=== PATIENT | male | born 2000 | race Hispanic/Latino ===

== ENCOUNTER 2019-01-15 21:50 | Emergency (ER) | payer OTHER, SELFPAY ==
--- OUTSIDE RECORDS SUMMARY | 2019-01-15 21:53 | XMS REPORT ---
:2000 [facility] [address] [place] [address] Care Team Providers Name Role Phone Unavailable Unavailable Unavailable Problems This patient has no known problems. Allergies, Adverse Reactions, Alerts This patient has no known allergies or adverse reactions. Medications This patient has no known medications.
[2019-01-15 22:38] LABS: Basophils % 0.7 % (0-1.3); Hematocrit 42.4 % (39.6-49.0); Lymphocytes % 20.2 % (15.3-44.8); MPV 8.4 fL (7.6-11.3); RBC Red Blood Cell Count 5.31 M/uL (4.33-5.43)
[2019-01-15 22:43] LABS: Protime INR 1.11
[2019-01-15 23:01] LABS: ALT/SGPT 45 U/L (12-78); AST/SGOT 26 U/L (15-37); Albumin 4.2 g/dL (3.4-5.0); Alkaline Phosphatase 169 U/L (45-117); BUN Blood Urea Nitrogen 17 mg/dL (7-18); Bicarbonate 28 mmol/L (21-32); Bilirubin Direct 0.1 mg/dL (0-0.2); Bilirubin Total 0.3 mg/dL (0.2-1.0); Glucose Level 116 mg/dL (74-106); Potassium 3.3 mmol/L (3.5-5.1); Protein, Total 7.7 g/dL (6.4-8.2); Sodium Level 140 mmol/L (136-145)
[2019-01-15] MEDS ORDERED: POTASSIUM CL SA 10 MEQ TAB PO ONE (23:41)
[2019-01-16 01:15] LABS: Barbiturates NEGATIVE (NEGATIVE); Benzodiazepines NEGATIVE (NEGATIVE); Cocaine NEGATIVE (NEGATIVE); METHAMPHETAM NEGATIVE (NEGATIVE); Methadone NEGATIVE (NEGATIVE); Opiates NEGATIVE (NEGATIVE); Phencyclidine NEGATIVE (NEGATIVE); THC Cannibis NEGATIVE (NEGATIVE)
[2019-01-16 02:00] LABS: Urine Blood NEGATIVE (NEG); Urine Glucose TRACE (NEG); Urine Protein NEGATIVE (NEG); Urine Specific Gravity >1.030 (1.005-1.030); Urine pH 6.5 (5.0-7.0)
[2019-01-16] MEDS ORDERED: DIAZEPAM 5 MG TABLET ONE (09:26)
--- NOTE | 2019-01-16 10:05 | EKG ---
Test Date: 2019-01-15 Test Time: 23:02:23 Clothespin Drier Operator: EMMA MEASUREMENT RESULTS: Intervals: Rate: 92 MS: 136 QRSD: 82 QT: 338 QTc: 417 [place]: P: 62 MS: 136 QRS: 78 T: 3 INTERPRETIVE STATEMENTS: Normal sinus rhythm Normal ECG No previous ECG available for comparison Electronically Signed On 01-16-19 10:03:34 FLAT SORTER PROCESSOR by Tip Huffman
--- NOTE | 2019-01-16 11:06 | EDPHYS ---
Physician Documentation [facility] Name: Rigoberto Solis Age: 18 yrs Sex: Male : 2000 Arrival Date: 01/15/2019 Time: 21:51 Bed 15 Private MD: ED Physician Corey Yan HPI: 01/15 22:55 This 18 yrs old Male presents to ER via Ambulatory with complaints of Altered kdr Mental Status. 22:55 The patient presents with confusion, decreased mental status, disorientation. Onset: kdr The symptoms/episode began/occurred gradually, 3 day(s) ago. Possible causes: Acute psychosis. Associated signs and symptoms: The patient has no apparent associated signs or symptoms. Current symptoms: In the emergency department the patient's symptoms are unchanged from the initial presentation. Patient's baseline: Neuro: alert and fully oriented, Motor: no deficits, Ambulation: walks without assistance, Speech: normal for age, The patient has a previous history of Depression. The patient has not experienced similar symptoms in the past. The patient has not recently seen a physician, Gets his meds from [facility]. Historical: - Allergies: 22:18 No Known Allergies; bb - Home Meds: 22:18 sertraline oral oral [Active]; bb - PMHx: 22:18 Anxiety; Depression; bb - PSHx: 22:18 None; bb - Immunization history:: Adult Immunizations up to date. - Social history:: Smoking status: Patient/guardian denies using tobacco, Patient/guardian denies using alcohol, street drugs. - Ebola Screening: : No symptoms or risks identified at this time. ROS: 22:55 Constitutional: Negative for fever, chills, and weight loss, Eyes: Negative for injury, kdr pain, redness, and discharge, ENT: Negative for injury, pain, and discharge, Neck: Negative for injury, pain, and swelling, Cardiovascular: Negative for chest pain, palpitations, and edema, Respiratory: Negative for shortness of breath, cough, wheezing, and pleuritic chest pain, Abdomen/GI: Negative for abdominal pain, nausea, vomiting, diarrhea, and constipation, Back: Negative for injury and pain, : Negative for injury, bleeding, discharge, and swelling, MS/Extremity: Negative for injury and deformity, Skin: Negative for injury, rash, and discoloration, Neuro: Negative for headache, weakness, numbness, tingling, and seizure activity. Allergy/Immunology: Negative for hives, rash, and allergies, Endocrine: Negative for neck swelling, polydipsia, polyuria, polyphagia, and marked weight changes, Hematologic/Lymphatic: Negative for swollen nodes, abnormal bleeding, and unusual bruising. 22:55 Psych: Positive for depression, visual hallucinations, Hallucinations are not recent or with this episode. Exam: 22:55 Constitutional: This is a well developed, well nourished patient who is awake, alert, kdr and in no acute distress. Head/Face: Normocephalic, atraumatic. Eyes: Pupils equal round and reactive to light, extra-ocular motions intact. Lids and lashes normal. Conjunctiva and sclera are non-icteric and not injected. Cornea within normal limits. Periorbital areas with no swelling, redness, or edema. Neck: Trachea midline, no thyromegaly or masses palpated, and no cervical lymphadenopathy. Supple, full range of motion without nuchal rigidity, or vertebral point tenderness. No Meningismus. Chest/axilla: Normal chest wall appearance and motion. Nontender with no deformity. No lesions are appreciated. Cardiovascular: Regular rate and rhythm with a normal S1 and S2. No gallops, murmurs, or rubs. Normal PMI, no JVD. No pulse deficits. Respiratory: Lungs have equal breath sounds bilaterally, clear to auscultation and percussion. No rales, rhonchi or wheezes noted. No increased work of breathing, no retractions or nasal flaring. Abdomen/GI: Soft, non-tender, with normal bowel sounds. No distension or tympany. No guarding or rebound. No evidence of tenderness throughout. Back: No spinal tenderness. No costovertebral tenderness. Full range of motion. Skin: Warm, dry with normal turgor. Normal color with no rashes, no lesions, and no evidence of cellulitis. MS/ Extremity: Pulses equal, no cyanosis. Neurovascular intact. Full, normal range of motion. Neuro: Awake and alert, GCS 15, oriented to person, place, time, and situation. Cranial nerves II-XII grossly intact. Motor strength 5/5 in all extremities. Sensory grossly intact. Cerebellar exam normal. Normal gait. 22:55 Psych: Behavior/mood is cooperative, depressed, inappropriate for age, Affect is flat, Unable to assess due to AMS - confusion. Patient has no thoughts/intents to harm self or others. Judgement / Insight is impaired. The patient is unable to cooperate with this portion of the exam. His affect is flat, he follow commands but appears disconnect from what is happening around him and is unable to answer questions such as where he lives, where he is at, his birthday. At this time he does not appear to be having any hallucinations though family reports that he has had them in the past. The patient had been on Risperidone but kept him on his sertraline.. Delusions/hallucinations are not present. Vital Signs: 22:18 BP 163 / 104; Pulse 106; Resp 14 S; Temp 98.4(O); Pulse Ox 100% on R/A; Weight 86.18 kg bb (R); Height 5 ft. 6 in. (167.64 cm) (R); Pain 0/10; 23:07 BP 136 / 86; Pulse 90; Resp 18; Pulse Ox 99% on R/A; lp1 12 02:15 BP 121 / 71; Pulse 90; Resp 18; Temp 98.2(O); Pulse Ox 99% on R/A; Pain 0/10; lp1 06:39 BP 133 / 87; Pulse 90; Resp 16; Temp 97.8; Pulse Ox 100% ; Pain 0/10; ds4 01/15 22:18 Body Mass Index 30.67 (86.18 kg, 167.64 cm) bb MDM: 08:05 Patient medically screened. rn 08:09 ED course: Pt awake, calm, mother reports is wandering off, has only had a few hours of rn sleep this whole week, not taking risperidone because they feel not helping, and was found walking in ditch confused. . 11:05 Data reviewed: vital signs, nurses notes, lab test result(s), radiologic studies. kdr Counseling: I had a detailed discussion with the patient and/or guardian regarding: the historical points, exam findings, and any diagnostic results supporting the discharge/admit diagnosis, lab results, radiology results, the need to transfer to another facility. ED course: The patient continues to be stable in the ED. He was medicated with Valium at 9:15 AM but has been otherwise without need for further immediate intervention prior to psychiatry evaluation. 01/15 22:25 Order name: Acetaminophen; Complete Time: 23:03 kdr 01/15 22:25 Order name: Basic Metabolic Panel; Complete Time: 23:03 [facility] 01/15 22:25 Order name: CBC with Diff; Complete Time: 23:03 [facility] 01/15 22:25 Order name: ETOH Level; Complete Time: 23:03 kdr 01/15 22:25 Order name: Hepatic Function; Complete Time: 23:03 [facility] 01/15 22:25 Order name: PT-INR; Complete Time: 23:03 kdr 01/15 22:25 Order name: Ptt, Activated; Complete Time: 23:03 kdr 01/15 22:25 Order name: Salicylate; Complete Time: 23:03 kdr 01/15 22:25 Order name: Urine Drug Screen; Complete Time: 08:04 kdr 01/15 22:25 Order name: EKG; Complete Time: 22:26 [facility] 01/16 01:03 Order name: Urine Dipstick--Ancillary (enter results); Complete Time: 08:04 [place] 01/16 11:03 Order name: CT Head Brain wo Cont [facility] 01/15 22:25 Order name: EKG - Nurse/Tech; Complete Time: 23:08 [facility] 01/15 22:25 Order name: IV Saline Lock; Complete Time: 22:41 [facility] 01/15 22:25 Order name: Labs collected and sent; Complete Time: 22:41 [facility] 01/15 22:25 Order name: Urine Dipstick-Ancillary (obtain specimen); Complete Time: 00:57 kdr 01/16 08:58 Order name: Diet Regular; Complete Time: 08:59 tw2 01/16 08:58 Order name: Diet Regular; Complete Time: 08:59 tw2 Administered Medications: 00:30 Drug: Potassium Chloride 40 mEq Route: PO; lp1 01:03 Follow up: Response: No adverse reaction lp1 09:28 Drug: Valium 5 mg Route: PO; tw2 10:35 Follow up: Response: No adverse reaction tw2 Disposition: 01/16/19 11:05 Transfer ordered to [facility]. Diagnosis is Depression, Acute psychosis. - Reason for transfer: Higher level of care. - Accepting physician is DR. Velásquez and Dr. Alarcon; [facility]. - Condition is Fair. - Problem is an acute exacerbation. - Symptoms are unchanged. Signatures: Dispatcher [employer] Corey Wright MD MD kdr Ballard, Brenda RN RN bb Ernesto Mcguire MD MD rn Pena, Laura, RN RN lp1 Lina Carreon RN RN tw2 Corrections: (The following items were deleted from the chart) 11:56 11:05 01/16/2019 11:05 Transfer ordered to Psych Facility. Diagnosis is Depression, tw2 Acute psychosis. Reason for transfer: Higher level of care. Accepting physician is DR. Velásquez and Dr. Alarcon; [facility]. Condition is Fair. Problem is an acute exacerbation. Symptoms are unchanged. kdr
--- NOTE | 2019-01-16 11:06 | ER ---
Nurse's Notes [facility] Name: Rigoberto Solis Age: 18 yrs Sex: Male : 2000 Arrival Date: 01/15/2019 Time: 21:51 Bed 15 Private MD: Diagnosis: Depression, Acute psychosis Presentation: 01/15 22:15 Presenting complaint: Mother states: pt has hx of anxiety and depression currently is bb taking sertraline and was on respiradone but she stopped it because it made him worse, over the last week pt has not been sleeping at all and will get up during the middle of the night to go walking around outside. Transition of care: patient was not received from another setting of care. Onset of symptoms was January 08, 2019. Risk Assessment: Do you want to hurt yourself or someone else? Patient reports no desire to harm self or others. Initial Sepsis Screen: Does the patient meet any 2 criteria? No. Patient's initial sepsis screen is negative. Does the patient have a suspected source of infection? No. Patient's initial sepsis screen is negative. Care prior to arrival: None. 22:15 Method Of Arrival: Ambulatory bb 22:15 Acuity: GLYNN 2 bb Historical: - Allergies: 22:18 No Known Allergies; bb - Home Meds: 22:18 sertraline oral oral [Active]; bb - PMHx: 22:18 Anxiety; Depression; bb - PSHx: 22:18 None; bb - Immunization history:: Adult Immunizations up to date. - Social history:: Smoking status: Patient/guardian denies using tobacco, Patient/guardian denies using alcohol, street drugs. - Ebola Screening: : No symptoms or risks identified at this time. Screenin:46 Abuse screen: Denies threats or abuse. Denies injuries from another. Nutritional lp1 screening: No deficits noted. Tuberculosis screening: No symptoms or risk factors identified. Fall Risk None identified. Assessment: 22:43 General: Appears in no apparent distress. Behavior is flat. Pain: Denies pain. Neuro: lp1 Level of Consciousness is awake, confused, Oriented to person, Gait is steady. Cardiovascular: Patient's skin is warm and dry. Respiratory: Respiratory effort is even, unlabored. GI: No deficits noted. : No signs and/or symptoms were reported regarding the genitourinary system. EENT: No signs and/or symptoms were reported regarding the EENT system. Derm: Skin is pink, warm \T\ dry. abrasions noted to upper left arm, superficial. Musculoskeletal: Range of motion: intact in all extremities. 23:45 Reassessment: Patient appears in no apparent distress at this time. Patient resting, lp1 calm in bed, mother at bedside. 01/16 00:45 Reassessment: Patient appears in no apparent distress at this time. [facility] 02:16 Reassessment: Patient appears in no apparent distress at this time. Patient resting, lp1 eyes closed, respirations unlabored; mother at bedside; Aware of pending approval to psych facility. 04:15 Reassessment: Patient appears in no apparent distress at this time. Patient ambulating lp1 to bathroom at this time; Continues to be slow to respond to questions, steady gait noted. 06:39 Reassessment: Patient ambulating to bathroom independently; calm, cooperative; Mother lp1 at bedside, aware of pending approval for transfer to facility for continued care. 06:45 Reassessment: Patient given sandwich and juice. lp1 08:00 Reassessment: Patient appears in no apparent distress at this time. Patient and/or tw2 family updated on plan of care and expected duration. Pain level reassessed. pts mother remains at bedside at this time. 08:57 Reassessment: Patient appears in no apparent distress at this time. Patient and/or tw2 family updated on plan of care and expected duration. Pain level reassessed. pt appears to be sleeping at this time. 09:30 Reassessment: Patient appears in no apparent distress at this time. pt given breakfast tw2 tray at this time. mother still remains at bedside at this time. 10:00 Reassessment: Patient appears in no apparent distress at this time. Patient and/or tw2 family updated on plan of care and expected duration. Pain level reassessed. pt appears to be sleeping at this time. 10:31 Reassessment: [facility] called for nurse to nurse. 10:59 Reassessment: Patient appears in no apparent distress at this time. Patient and/or tw2 family updated on plan of care and expected duration. Pain level reassessed. 11:56 Reassessment: Patient appears in no apparent distress at this time. Patient and/or tw2 family updated on plan of care and expected duration. Pain level reassessed. Vital Signs: 01/15 22:18 BP 163 / 104; Pulse 106; Resp 14 S; Temp 98.4(O); Pulse Ox 100% on R/A; Weight 86.18 kg bb (R); Height 5 ft. 6 in. (167.64 cm) (R); Pain 0/10; 23:07 BP 136 / 86; Pulse 90; Resp 18; Pulse Ox 99% on R/A; lp1 01/16 02:15 BP 121 / 71; Pulse 90; Resp 18; Temp 98.2(O); Pulse Ox 99% on R/A; Pain 0/10; lp1 06:39 BP 133 / 87; Pulse 90; Resp 16; Temp 97.8; Pulse Ox 100% ; Pain 0/10; ds4 01/15 22:18 Body Mass Index 30.67 (86.18 kg, 167.64 cm) bb ED Course: 01/15 21:51 Patient arrived in ED. ds1 21:55 Corey Yan MD is Attending Physician. kdr 22:18 Triage completed. bb 22:18 Arm band placed on Patient placed in an exam room, on a stretcher, on pulse oximetry. bb Family accompanied patient. 22:25 Inserted saline lock: 20 gauge in right antecubital area, using aseptic technique. lp1 Blood collected. 22:38 Kim Whitt, RN is Primary Nurse. lp1 22:46 Patient has correct armband on for positive identification. Placed in gown. lp1 01/16 02:17 No provider procedures requiring assistance completed. lp1 07:07 Primary Nurse role handed off by Kim Whitt, RN tw2 07:07 Lina Carreon, RN is Primary Nurse. tw2 08:05 Attending Physician role handed off by Corey Yan MD rn 08:05 Ernesto Mcguire MD is Attending Physician. rn 09:29 faxed chart and exclusionary to [facility]. bd 10:09 Attending Physician role handed off by Ernesto Mcguire MD rn 10:09 Corey Yan MD is Attending Physician. rn 11:22 CT Head Brain wo Cont In Process Unspecified. EDMS 11:54 IV discontinued, intact, bleeding controlled, No redness/swelling at site. Pressure tw2 dressing applied. Administered Medications: 00:30 Drug: Potassium Chloride 40 mEq Route: PO; lp1 01:03 Follow up: Response: No adverse reaction lp1 09:28 Drug: Valium 5 mg Route: PO; tw2 10:35 Follow up: Response: No adverse reaction tw2 Outcome: 11:05 ER care complete, transfer ordered by MD. [facility] 11:53 Transferred by ground EMS Note: [facility] tw2 11:53 Condition: stable 11:53 Instructed on the need for transfer. 11:56 Patient left the ED. tw2 Signatures: Dispatcher [employer] EDMS Misa Caballero Kevin, MD MD kdr Sanford, Demi ds1 Lesia Mukherjee RN RN Lana Harris RN RN iw Ernesto Mcguire MD MD rn Pena, Laura, RN RN lp1 Aleks Nguyen ds4 Lina Carreon RN RN tw2
--- NOTE | 2019-01-16 11:52 | RAD REPORT ---
EXAM DESCRIPTION: CT - Head Brain Wo Cont - 01/16/2019 11:21 am CLINICAL HISTORY: CONFUSED Headache, drowsiness COMPARISON: No comparisons TECHNIQUE: All CT scans are performed using dose optimization technique as appropriate and may inclu de automated exposure control or mA/KV adjustment according to patient size. FINDINGS: No intracranial hemorrhage, hydrocephalus or extra-axial fluid collection.No areas of brai n edema or evidence of midline shift. There is a large mass in the skullbase region in the approximate expected location of the sphenoid si nus. The mass demonstrates calcified as well as soft tissue components. The overall lesion measures 3 .4 x 4.3 x 2.8 cm. The calvarium is intact. IMPRESSION: Large mass type lesion seen in the region of the sphenoid sinus demonstrating areas of s urrounding bony sclerosis as well as expansion, soft tissue and calcific densities. This is a nonspec ific finding but may represent a mucocele. No intracranial bleed seen.
[2019-01-16 12:07] VITALS: BP 133/87; TEMP 97.8; O2SAT 100
== END 2019-01-16 11:56 ==
LOC: ER 21:50
DX: F32.9 Major depressive disorder, single episode, unspecified (principal); F23 Brief psychotic disorder; F41.9 Anxiety disorder, unspecified
CPT/HCPCS: 36415; 70450; 80048; 80076; 80307; 80320; 80329; 81003; 85025; 85610; 85730; 93005; 99285

== ENCOUNTER 2024-12-13 10:54 | Emergency (ER) | payer MEDICAID, OTHER ==
[2024-12-13 11:50] LABS: Absolute Lymphocytes (CBC) 2.6 K/uL (0.7-4.9); Hematocrit 44.7 % (39.6-49.0); Hemoglobin 14.4 g/dL (13.6-17.9); MCH 24.7 pg (27.0-35.0); MCHC 32.2 g/dL (32.0-36.0); MCV 76.8 fL (80-100); MPV 8.5 fL (7.6-11.3); Nucleated RBC Absolute Count 0.0 (0-0); Nucleated Red Blood Cells % 0.2 % (0-0); RBC Red Blood Cell Count 5.82 M/uL (4.33-5.43); White Blood Count 10.70 thou/uL (4.3-10.9)
[2024-12-13 11:59] LABS: PT Prothrombin Time 12.7 SECONDS (10-13.0); PTT, Activated Partial Thromb 33.6 SECONDS (27.2-37.4); Protime INR 1.13
[2024-12-13 12:03] LABS: METHAMPHETAM NEGATIVE (NEGATIVE); THC Cannibis NEGATIVE (NEGATIVE)
[2024-12-13 12:14] LABS: ALT/SGPT 38 U/L (16-61); AST/SGOT 24 U/L (15-37); Albumin 3.6 g/dL (3.4-5.0); Albumin/Globulin Ratio 0.9 (1.1-1.8); Alkaline Phosphatase 161 U/L (45-117); Anion Gap 9.7 mEq/L (5.0-15.0); BUN Blood Urea Nitrogen 13 mg/dL (7-18); Bilirubin Indirect, Calculated 0.6 mg/dL (0.2-0.8); Globulin 3.8 g/dL (2.3-3.5); Glucose Level 86 mg/dL (74-106); Potassium 3.7 mEq/L (3.5-5.1)
--- NOTE | 2024-12-13 12:43 | EDPHYS ---
Physician Documentation [facility] Name: Rigoberto Solis Age: 24 yrs Sex: Male : 2000 Arrival Date: 12/13/2024 Time: 10:54 Bed 18 Private MD: ED Physician Silas Crystal HPI: 12/13 11:37 This 24 yrs old Male presents to ER via EMS with complaints of Psych Problem. dr5 11:37 The patient presents to the emergency department with suicide ideation, and the patient dr5 has a plan, Wants to kill himself by putting knife to his neck. Onset: The symptoms/episode began/occurred acutely. Patient is a 24-year-old male with history of anxiety, depression, and previous suicidal ideation coming in with suicidal ideation with plan to put a knife to his neck and sliced his neck.. Historical: - Allergies: 10:57 No Known Allergies; bp - PMHx: :57 Anxiety; Depression; bp - Immunization history:: Adult Immunizations unknown. - Infectious Disease History:: Denies. - Social history:: Smoking status: Patient denies any tobacco usage or history of. ROS: 11:37 Constitutional: as per hpi dr5 Exam: 11:37 Constitutional: This is a well developed, well nourished patient who is awake, alert, dr5 and in no acute distress. Head/Face: Normocephalic, atraumatic. Eyes: Pupils equal round and reactive to light, extra-ocular motions intact. Lids and lashes normal. Conjunctiva and sclera are non-icteric and not injected. Cornea within normal limits. Periorbital areas with no swelling, redness, or edema. Neck: Trachea midline, no thyromegaly or masses palpated, and no cervical lymphadenopathy. Supple, full range of motion without nuchal rigidity, or vertebral point tenderness. No Meningismus. Chest/axilla: Normal chest wall appearance and motion. Nontender with no deformity. No lesions are appreciated. Cardiovascular: Regular rate and rhythm with a normal S1 and S2. Normal PMI, no JVD. No pulse deficits. Respiratory: Lungs have equal breath sounds bilaterally, clear to auscultation. No rales, rhonchi or wheezes noted. No increased work of breathing, no retractions or nasal flaring. Back: No spinal tenderness. No costovertebral tenderness. Full range of motion. Skin: Warm, dry with normal turgor. Normal color with no rashes, no lesions, and no evidence of cellulitis. MS/ Extremity: Pulses equal, no cyanosis. Neurovascular intact. Full, normal range of motion. Neuro: Awake and alert, GCS 15, oriented to person, place, time, and situation. Cranial nerves II-XII grossly intact. Motor strength 5/5 in all extremities. Sensory grossly intact. Cerebellar exam normal. Normal gait. Vital Signs: 10:56 BP 183 / 103; Pulse 94; Resp 16; Temp 98; Pulse Ox 98% ; bp 11:05 BP 138 / 103; Pulse 90; Resp 18; Temp 98.2; Pulse Ox 95% ; ts3 12:05 BP 134 / 95; Pulse 90; Resp 20; Pulse Ox 100% on R/A; kj2 12:59 BP 134 / 88; Pulse 88; Resp 18; Temp 98; Pulse Ox 100% on R/A; kj2 MDM: 10:58 Medical Screening Exam initiated dr5 11:37 Differential diagnosis: drug withdrawal. acute psychotic break, depression, Suicidal dr5 ideation, psychosis. Data reviewed: vital signs, nurses notes, lab test result(s), CBC, white blood cell count, hemoglobin, hematocrit, platelets, electrolytes, sodium, potassium, chloride, serum bicarbonate, BUN, creatinine, serum glucose, PTT, PT, hepatic function, ethanol. Consideration of Admission/Observation Escalation of care including admission/observation considered. Will have patient be seen by jet Souza for further recommendations. Likely admission to psychiatry facility. 16:48 I considered the following discharge prescriptions or medication management in the [facility] emergency department I discussed and recommended Over The Counter medications. Historians other than the Patient: Parent: Mother who has power of trial attorney. Care significantly affected by the following Social Determinants of Health: Poor access to healthcare and/or lack of insurance, Poor access to transportation, Problems related to employment. Counseling: I had a detailed discussion with the patient and/or guardian regarding the historical points, exam findings, and any diagnostic results supporting the discharge/admit diagnosis, the presence of at least one elevated blood pressure reading (>120/80) during this emergency department visit, lab results, radiology results, the need for outpatient follow up, for definitive care, a psychiatrist, to return to the emergency department if symptoms worsen or persist or if there are any questions or concerns that arise at home. Special discussion: I discussed with the patient/guardian in detail that at this point there is no indication for admission to the hospital. It is understood, however, that if the symptoms persist or worsen the patient needs to return immediately for re-evaluation. Based on the history and exam findings, there is no indication for further emergent testing or inpatient evaluation. I discussed with the patient/guardian the need to see the psychiatrist for further evaluation of the symptoms. ED course: Mother reports she is comfortable with taking him home. Mother states that she has 07/09 care of him and incident happened today while she was in court and when she was not allowed to go in with her. Mother reports that home is safe and is free of weapons, pills, knives. Mother states that she has multiple psychiatric appointments this next week. Mother reports that she feels safe taking him home as this has been a continuous issue and she knows how to handle him. Reassessment of the patient completed patient reports that he does not feel the killing himself anymore and wants to go home once with mother. Will send patient home with mother. Strict ER precautions given if anything changes.. 12/13 10:59 Order name: Acetaminophen; Complete Time: 12:23 12/13 10:59 Order name: Basic Metabolic Panel; Complete Time: 12:12/13 10:59 Order name: CBC with Diff; Complete Time: 11:59 12/13 10:59 Order name: ETOH Level; Complete Time: 12:23 12/13 10:59 Order name: Hepatic Function; Complete Time: 12:23 12/13 10:59 Order name: PT-INR; Complete Time: 11:59 12/13 10:59 Order name: Ptt, Activated; Complete Time: 11:59 12/13 10:59 Order name: Salicylate; Complete Time: 12:23 12/13 10:59 Order name: Urine Drug Screen; Complete Time: 12:03 12/13 10:59 Order name: EKG - Nurse/Tech; Complete Time: 12:09 12/13 10:59 Order name: IV Saline Lock; Complete Time: 11:46 12/13 10:59 Order name: Labs collected and sent; Complete Time: 11:46 12/13 10:59 Order name: Suicide Screening ([place]); Complete Time: 12:09 dr5 EC:53 Rate is 85 beats/min. Rhythm is regular. QRS Douglas is Normal. CO interval is normal at dr5 138 msec. QRS interval is normal at 92 msec. QT interval is normal at 364 msec. Clinical impression: Normal ECG and No evidence of ischemia. Administered Medications: No medications were administered Disposition: 16:50 I was immediately available on-site in the Emergency Department for consultation in the nv3 care of the patient. Disposition Summary: 12/13/24 12:43 Discharge Ordered Notes: Location: Home dr5 Condition: Stable dr5 Diagnosis - Suicidal ideations dr5 Followup: dr5 - With: Emergency Department - When: 1 - 2 days - Reason: Recheck today's complaints, Continuance of care, Re-evaluation by your physician Followup: dr5 - With: Private Physician - When: 1 - 2 days - Reason: Recheck today's complaints, Continuance of care, Re-evaluation by your physician Discharge Instructions: - Discharge Summary Sheet dr5 - Suicidal Feelings: How to Help Yourself dr5 Forms: - Medication Reconciliation Form dr5 - Patient Portal Instructions dr5 - Leadership Thank You Letter dr5 Signatures: Dispatcher [employer] Trenton Rubio RN RN Silas Mares DO DO ms3 Ricco Duarte, [employer] TECHNOLOGY MANAGER-C [employer] TECHNOLOGY MANAGER-Cdr5 Corrections: (The following items were deleted from the chart) 16:49 11:37 Consideration of Admission/Observation Will have patient be seen by jet Souza dr5 for further recommendations. Likely admission to psychiatry facility. dr5
--- NOTE | 2024-12-13 12:43 | ER ---
Nurse's Notes [facility] Name: Rigoberto Solis Age: 24 yrs Sex: Male : 2000 Arrival Date: 12/13/2024 Time: 10:54 Bed 18 Private MD: Diagnosis: Suicidal ideations Presentation: 12/13 10:56 Chief complaint: EMS states: "HE FLAGGED DOWN [facility] AND STATED HE WAS SUICIDAL. bp HE'S GOT SOME FORM OF MR, SO HE'S HARD TO GET INFO OUT OF". Coronavirus screen: At this time, the client does not indicate any symptoms associated with coronavirus-19. Ebola Screen: No symptoms or risks identified at this time. Initial Sepsis Screen: Does the patient meet any 2 criteria? No. Patient's initial sepsis screen is negative. Does the patient have a suspected source of infection? No. Patient's initial sepsis screen is negative. Risk Assessment: Do you want to hurt yourself or someone else? Patient reports desire/thoughts of hurting themselves or someone else. Provider notified. Onset of symptoms is unknown. 10:56 Method Of Arrival: EMS: [facility] bp 10:56 Acuity: GLYNN 2 bp Triage Assessment: 10:57 General: Appears in no apparent distress. Behavior is flat. Pain: Denies pain. EENT: No bp deficits noted. Neuro: No deficits noted. Cardiovascular: No deficits noted. Respiratory: No deficits noted. GI: No signs and/or symptoms were reported involving the gastrointestinal system. : No signs and/or symptoms were reported regarding the genitourinary system. Derm: No deficits noted. Musculoskeletal: No deficits noted. Historical: - Allergies: 10:57 No Known Allergies; bp - PMHx: 10:57 Anxiety; Depression; bp - Immunization history:: Adult Immunizations unknown. - Infectious Disease History:: Denies. - Social history:: Smoking status: Patient denies any tobacco usage or history of. Screenin:20 [facility] ED Fall Risk Assessment (Adult) History of falling in the last 3 months, cc6 including since admission No falls in past 3 months (0 pts) Confusion or Disorientation No (0 pts) Intoxicated or Sedated No (0 pts) Impaired Gait No (0 pts) Mobility Assist Device Used No (0 pt) Altered Elimination No (0 pt) Score/Fall Risk Level 0 - 2 = Low Risk Oriented to surroundings, Maintained a safe environment, Educated pt \\T\\ family on fall prevention, incl call for assistance when getting out of bed, Hourly rounding (assess needs \\T\\ fall precautionary measures) done. Abuse screen: Denies threats or abuse. Denies injuries from another. Nutritional screening: No deficits noted. Tuberculosis screening: No symptoms or risk factors identified. Assessment: 11:20 General: Appears in no apparent distress. comfortable, Behavior is cooperative, cc6 anxious. Pain: Denies pain. Neuro: Level of Consciousness is awake, alert, obeys commands, Oriented to person, place, time, situation, Appropriate for age. Cardiovascular: Capillary refill < 3 seconds Patient's skin is warm and dry. Respiratory: Airway is patent Respiratory effort is even, unlabored, Respiratory pattern is regular, symmetrical. GI: No signs and/or symptoms were reported involving the gastrointestinal system. : No signs and/or symptoms were reported regarding the genitourinary system. EENT: No signs and/or symptoms were reported regarding the EENT system. Derm: No signs and/or symptoms reported regarding the dermatologic system. Musculoskeletal: No signs and/or symptoms reported regarding the musculoskeletal system. 12:05 Reassessment: Patient appears in no apparent distress at this time. Patient and/or kj2 family updated on plan of care and expected duration. Pain level reassessed. Patient is alert, oriented x 3, equal unlabored respirations, skin warm/dry/pink. 12:05 Reassessment: Patient appears in no apparent distress at this time. patient denies any kj2 suicidal and homicidal ideation. 12:59 Reassessment: Patient appears in no apparent distress at this time. kj2 Psych: 11:20 [place] Suicide Severity Screening: In the past month, have you wished you were cc6 or wished you could go to sleep and not wake up? Patient responds "No." "In the past month, have you actually had any thoughts of killing yourself?" Patient responds "no." "In your lifetime, have you ever done anything, started to do anything, or prepared to do anything to end your life?" Patient responds "no.". Subjective: Patient's mood is Anxious Delusions are denied, Hallucinations are denied. Objective: Patient is cooperative, restless, Affect is appropriate. Interventions: Removed personal items and placed in bag. Patient placed in hospital gown. Urine collected and sent for urine drug test. Belonging list filled out. Safety Checks: Personal items have been removed. Door is open. Visitors are present. Mother at bedside. Pt denies substance abuse. Commitment: Patient will be a voluntary commitment. 12:05 [place] Suicide Severity Screening: In the past month, have you wished you were kj2 or wished you could go to sleep and not wake up? Patient responds "No." "In the past month, have you actually had any thoughts of killing yourself?" Patient responds "no." "In your lifetime, have you ever done anything, started to do anything, or prepared to do anything to end your life?" Patient responds "no.". Vital Signs: 10:56 BP 183 / 103; Pulse 94; Resp 16; Temp 98; Pulse Ox 98% ; bp 11:05 BP 138 / 103; Pulse 90; Resp 18; Temp 98.2; Pulse Ox 95% ; ts3 12:05 BP 134 / 95; Pulse 90; Resp 20; Pulse Ox 100% on R/A; kj2 12:59 BP 134 / 88; Pulse 88; Resp 18; Temp 98; Pulse Ox 100% on R/A; kj2 ED Course: 10:56 Patient arrived in ED. bp 10:57 Triage completed. bp 10:57 Arm band placed on. bp 10:58 Ricco Duarte FNP-C is PHCP. dr5 10:58 Silas Crystal DO is Attending Physician. dr5 11:20 Bed in low position. Adult w/ patient. cc6 11:46 Initial lab(s) drawn, by laboratory chemical assistant, sent to lab. Inserted saline lock: 20 gauge in right ts3 antecubital area, using aseptic technique. Blood collected. Flushed with 10 mL NS. 11:46 Urine collected: clean catch specimen, sent to lab. ts3 11:55 Barbi Aldrich, BELINDA is Primary Nurse. cc6 12:09 EKG done, by flight data technician. reviewed by Ricco ORTIZ. ts3 13:00 No provider procedures requiring assistance completed. IV discontinued, intact, kj2 bleeding controlled, No redness/swelling at site. Pressure dressing applied. 13:01 Provided Education on: safety risks. kj2 Administered Medications: No medications were administered Medication: 13:02 VIS not applicable for this client. kj2 Outcome: 12:43 Discharge ordered by . alicia 13:00 Discharged to home ambulatory, with family, kj2 13:00 Condition: stable 13:00 Discharge instructions given to patient, family, Instructed on discharge instructions, follow up and referral plans. Demonstrated understanding of instructions, follow-up care, 13:09 Patient left the ED. kj2 Signatures: Trenton Guan RN RN bp Arline Echevarria RN RN kj2 Barbi Aldrich, RN RN cc6 Ricco Duarte, SLATE HANDLER-C SLATE HANDLER-Cdr5 Yaz Gonzalez ts3
[2024-12-13 13:15] VITALS: O2SAT 100
[2024-12-13 13:16] VITALS: BP 134/88; TEMP 98
== END 2024-12-13 13:09 | disposition home or self-care (01) ==
LOC: ER 10:54
DX: R45.851 Suicidal ideations (principal)
CPT/HCPCS: 36415; 80048; 80076; 80143; 80179; 80307; 82077; 85025; 85610; 85730; 93005; 99285